=== PATIENT | male | born 1985 | race Caucasian/White ===

== ENCOUNTER 2019-04-02 09:14 | Emergency (ER) | payer MEDICAID, OTHER ==
[2019-04-02] MEDS ORDERED: Azithromycin 250 MG TAB ONE ×2 (10:23→12:40)
[2019-04-02] MEDS ORDERED: Lidocaine 1% PF 5 ML VIAL ONE (10:23)
[2019-04-02] MEDS ORDERED: cefTRIAXone\\ROCEPHIN 250 MG VIAL ONE (10:23)
[2019-04-02 20:51] LABS: Chlam.trachomatis by PCR,Urine Not Detected (NotDetected)
== END 2019-04-02 10:52 | disposition home or self-care (01) ==
LOC: ERS 09:14
DX: A64 Unspecified sexually transmitted disease (principal); I10 Essential (primary) hypertension; F17.220 Nicotine dependence, chewing tobacco, uncomplicated
CPT/HCPCS: 87491; 87591; 96372; 99283; J0696; J2001

== ENCOUNTER 2019-07-07 10:26 | Emergency (ER) | payer SELFPAY ==
[2019-07-07] MEDS ORDERED: Ketorolac Tromethamine 30 MG/ML VIAL ONE (10:56)
[2019-07-07] MEDS ORDERED: Ondansetron PF 4 MG/2 ML Vial ONE (10:56)
[2019-07-07 11:02] LABS: #Eosinphils 0.2 thou/uL (0.0-0.7); #Lymphocytes 0.7 thou/uL (1.20-3.40); #Monocytes 0.6 thou/uL (0.11-0.59); #Neutrophils 14.1 thou/uL (1.40-6.50); %Basophils 0.3 % (0.0-1.0); %Eosinophils 1.3 % (0.0-10.0); %Lymphocytes 4.6 % (21.0-51.0); %Monocytes 4.1 % (0.0-10.0); %Neutrophils 89.8 % (42.0-75.0); Hemoglobin 17.2 g/dL (14.0-18.0); Mean Corpuscular HGB CONC 30.8 g/dL (32.0-36.0); Mean Corpuscular Hemoglobin 26.9 pg (27.0-31.0); Mean Corpuscular Volume 87.6 fL (78.0-98.0); Mean Platelet Volume 8.3 fL (7.4-10.4); Platelet Count 265 thou/uL (130-400); RBC Distribution Width 12.3 % (11.5-14.5); Red Blood Cell (RBC) Count 6.39 mill/uL (4.70-6.10); White Blood Cell (WBC) Count 15.7 thou/uL (4.8-10.8)
[2019-07-07 11:24] LABS: ALT (SGPT) 16 U/L (8-55); AST (SGOT) 13 U/L (5-34); Albumin 4.6 g/dL (3.5-5.0); Alkaline Phosphatase 90 U/L (40-110); Anion Gap 12 mmol/L (10-20); BUN (Urea Nitrogen) 20 mg/dL (8.9-20.6); Bilirubin, Total 0.7 mg/dL (0.2-1.2); Calc. Creatinine Clearance 0 mL/min (70-130); Calcium 9.9 mg/dL (7.8-10.44); Carbon Dioxide 27 mmol/L (22-29); Chloride 102 mmol/L (98-107); Estimated GFR-MDRD 74; Globulin 3.2 g/dL (2.4-3.5); Glucose 102 mg/dL (70-105); Lipase 13 U/L (8-78); Potassium 4.4 mmol/L (3.5-5.1); Protein, Total 7.8 g/dL (6.0-8.3); Sodium 137 mmol/L (136-145)
[2019-07-07 12:27] LABS: Bacteria/HPF None Seen HPF (None Seen); Bilirubin Negative (Negative); Blood, Urine Negative (Negative); Clarity Clear (Clear); Glucose, Urine (Dipstick) Normal (Negative); Leukocyte 75 Leu/uL (Negative); Nitrite Negative (Negative); Protein, Urine (Dipstick) 100 mg/dL (Neg-Trace); Squamous Epithelial 0-3 HPF (0-3); Urobilinogen Normal mg/dL (Less than 2)
[2019-07-07 12:39] LABS: RBC/HPF 0-3 HPF (0-3); Sperm/HPF 4+ HPF (None Seen)
--- NOTE | 2019-07-07 13:57 | RAD ---
Exam: Chest one view HISTORY:Headache. Chest pain. Cough. Comparison: None FINDINGS: Cardiac silhouette: Normal Aorta: Unremarkable Pulmonary vessels: Normal Costophrenic angles: Clear LUNGS: No masses or consolidation. Pneumothorax: None Osseous abnormalities: None IMPRESSION: No acute cardiopulmonary process.
[2019-07-07] MEDS ORDERED: Lidocaine Viscous Sol 2% 15 ml UD Cup ONE (14:15)
[2019-07-07] MEDS ORDERED: Mag-Al 1200 mg/1200 mg/30 ML UDCUP ONE (14:15)
--- NOTE | 2019-07-11 14:52 | EKG ---
Test Reason : Blood Pressure : / mmHG Vent. Rate : 100 BPM Atrial Rate : 100 BPM P-R Int : 122 ms QRS Dur : 104 ms QT Int : 336 ms P-R-T Axes : 061 046 060 degrees QTc Int : 433 ms Normal sinus rhythm Normal ECG Confirmed by MEERA ANAYA MD ([id number]), videotape editor MARC LLANES ([id number] on 07/11/2019 2:51:53 PM Referred By: Confirmed By:MEERA ANAYA MD
== END 2019-07-07 14:17 | disposition home or self-care (01) ==
LOC: ERS 10:26
DX: N39.0 Urinary tract infection, site not specified (principal); I10 Essential (primary) hypertension; F17.220 Nicotine dependence, chewing tobacco, uncomplicated
CPT/HCPCS: 71045; 80053; 81003; 81015; 83690; 85025; 87804; 93005; 96361; 96374; 96375; J1885; J2405

== ENCOUNTER 2020-02-04 17:19 | Emergency (ER) | payer SELFPAY ==
[2020-02-04 17:57] LABS: #Basophils 0.1 thou/uL (0.0-0.2); #Eosinphils 0.4 thou/uL (0.0-0.7); #Lymphocytes 3.7 thou/uL (1.20-3.40); #Monocytes 1.4 thou/uL (0.11-0.59); #Neutrophils 9.7 thou/uL (1.40-6.50); %Basophils 0.7 % (0.0-1.0); %Eosinophils 2.7 % (0.0-10.0); %Lymphocytes 24.1 % (21.0-51.0); %Monocytes 9.2 % (0.0-10.0); %Neutrophils 63.4 % (42.0-75.0); Hemoglobin 14.1 g/dL (14.0-18.0); Mean Corpuscular HGB CONC 33.1 g/dL (32.0-36.0); Mean Corpuscular Hemoglobin 29.1 pg (27.0-31.0); Mean Platelet Volume 7.7 fL (7.4-10.4); Platelet Count 302 thou/uL (130-400); Red Blood Cell (RBC) Count 4.83 mill/uL (4.70-6.10); White Blood Cell (WBC) Count 15.3 thou/uL (4.8-10.8)
[2020-02-04] MEDS ORDERED: cefTRIAXone\\ROCEPHIN 250 MG VIAL ONE (18:06)
[2020-02-04] MEDS ORDERED: Lidocaine 1% (PF) 30 ML VIAL ONE (18:06)
[2020-02-04] MEDS ORDERED: Azithromycin 250 MG TAB ONE (18:08)
[2020-02-04 18:15] LABS: ALT (SGPT) 18 U/L (8-55); AST (SGOT) 12 U/L (5-34); Albumin 3.8 g/dL (3.5-5.0); Alkaline Phosphatase 76 U/L (40-110); Anion Gap 10 mmol/L (10-20); BUN (Urea Nitrogen) 10 mg/dL (8.9-20.6); Bilirubin, Total Less than 0.2 mg/dL (0.2-1.2); Calc. Creatinine Clearance 0 mL/min (70-130); Carbon Dioxide 27 mmol/L (22-29); Chloride 106 mmol/L (98-107); Estimated GFR-MDRD Greater than 90; Globulin 2.9 g/dL (2.4-3.5); Glucose 72 mg/dL (70-105); Potassium 3.9 mmol/L (3.5-5.1); Protein, Total 6.7 g/dL (6.0-8.3); Sodium 139 mmol/L (136-145)
[2020-02-04] MEDS ORDERED: Acetaminophen 500 MG TAB ONE (18:21)
[2020-02-04 18:29] LABS: Bilirubin Negative (Negative); Blood, Urine Trace (Negative); Clarity Turbid (Clear); Glucose, Urine (Dipstick) Normal (Negative); Ketone, Urine Negative (Negative); Leukocyte 500 Leu/uL (Negative); Nitrite Negative (Negative); Protein, Urine (Dipstick) 10 mg/dL (Neg-Trace); Specific Gravity, Urine 1.022 (1.002-1.036); Squamous Epithelial None Seen HPF (0-3); Urobilinogen Normal mg/dL (Less than 2); WBC/HPF Greater than 50 HPF (0-3); pH, Urine 6.5 (5.0-9.0)
[2020-02-04 18:41] LABS: Bacteria/HPF 1+ HPF (None Seen)
[2020-02-06 19:30] LABS: Chlam.trachomatis by PCR,Urine Not Detected (NotDetected)
== END 2020-02-04 18:43 | disposition home or self-care (01) ==
LOC: ERS 17:19
DX: A64 Unspecified sexually transmitted disease (principal); I10 Essential (primary) hypertension; F17.220 Nicotine dependence, chewing tobacco, uncomplicated
CPT/HCPCS: 36415; 80053; 81003; 81015; 85025; 87491; 87591; 96372; 99283; J0696; J2001

== ENCOUNTER 2020-05-11 00:05 | Emergency (ER) | payer SELFPAY | END 2020-05-11 00:17 | disposition left against medical advice (07) | LOC: ERS 00:05 | DX: Z53.21 Procedure and treatment not carried out due to patient leaving prior to being seen by health care provider (principal) ==

== ENCOUNTER 2022-06-10 00:35 | Emergency (ER) | payer SELFPAY ==
[2022-06-10] MEDS ORDERED: Famotidine 20 MG TAB ONE (01:13)
[2022-06-10] MEDS ORDERED: hydrOXYzine 25 MG TAB ONE (01:13)
== END 2022-06-10 01:40 | disposition home or self-care (01) ==
LOC: ERS 00:35
DX: R21 Rash and other nonspecific skin eruption (principal); F17.220 Nicotine dependence, chewing tobacco, uncomplicated
CPT/HCPCS: 99282

== ENCOUNTER 2024-11-09 12:34 | Emergency (ER) | payer OTHER, SELFPAY ==
[2024-11-09 13:24] LABS: #Basophils 0.06 10x3/uL (0.0-0.2); #Eosinophils 0.28 10x3/uL (0.0-0.7); #Monocytes 0.97 10x3/uL (0.11-0.59); #Neutrophils 6.90 10x3/uL (1.40-6.50); %Basophils 0.6 % (0.0-1.0); %Eosinophils 2.9 % (0.0-10.0); %Lymphocytes 15.7 % (21.0-51.0); %Monocytes 9.9 % (0.0-10.0); %Neutrophils 70.6 % (42.0-75.0); Hematocrit 40.6 % (42.0-52.0); Hemoglobin 13.1 g/dL (14.0-18.0); Mean Corpuscular Hemoglobin 26.7 pg (27.0-31.0); Mean Corpuscular Volume 82.9 fL (78.0-98.0); Platelet Count 298 10x3/uL (130-400); Red Blood Cell (RBC) Count 4.90 mill/uL (4.70-6.10); White Blood Cell (WBC) Count 9.78 10x3/uL (4.8-10.8)
[2024-11-09 13:49] LABS: ALT (SGPT) 46 U/L (Less than 45); AST (SGOT) 46 U/L (11-34); Albumin 4.0 g/dL (3.1-4.5); Alkaline Phosphatase 73 U/L (40-110); Anion Gap 14 mmol/L (10-20); BUN (Urea Nitrogen) 24 mg/dL (8.9-20.6); Bilirubin, Total 0.4 mg/dL (0.3-1.2); Calc. Creatinine Clearance 0 mL/min (70-130); Calcium 8.9 mg/dL (7.8-10.44); Carbon Dioxide 23 mmol/L (22-29); Chloride 106 mmol/L (98-107); Globulin 3.6 g/dL (2.4-3.5); Glucose 111 mg/dL (70-105); Potassium 3.6 mmol/L (3.5-5.1); Sodium 139 mmol/L (136-145)
[2024-11-09 13:50] LABS: Acetaminophen Less than 10 mcg/mL (Less than 10); Salicylate Less than 8.0 mg/dL (Less than 8.0)
[2024-11-09] MEDS ORDERED: Iopamidol 370 76% 100 ML VIAL ONE (14:52)
[2024-11-09 18:56] LABS: Bacteria/HPF None Seen HPF (None Seen); CAUTI Indications for Culture Dysuria,urgency,freq; Glucose, Urine (Dipstick) Normal (Negative); Leukocyte Negative Leu/uL (Negative); Protein, Urine (Dipstick) 10 mg/dL (Neg-Trace); RBC/HPF 0-3 HPF (0-3); WBC/HPF 0-3 HPF (0-3)
[2024-11-09 18:58] LABS: Specific Gravity, Urine Greater than 1.050 (1.002-1.036)
[2024-11-09 18:59] LABS: Urine Culture Reflex No No
[2024-11-09 19:04] LABS: Cocaine Metabolite Screen Negative (Negative); THC/Cannabinoid Screen Negative (Negative); Tricyclic Screen Negative (Negative)
== END 2024-11-09 19:24 ==
LOC: ERS 12:34
DX: R45.851 Suicidal ideations (principal); F17.220 Nicotine dependence, chewing tobacco, uncomplicated
CPT/HCPCS: 36415; 70496; 70498; 72125; 80053; 80306; 80307; 81001; 85025; 93005; Q9967